=== PATIENT | male | born 1995 | race Caucasian/White ===

== ENCOUNTER 2018-05-11 08:03 | Emergency (ER) | payer OTHER ==
[2018-05-11] MEDS: ACETAMINOPHEN 500 MG TAB PO (08:21)
== END 2018-05-11 08:52 | disposition home or self-care (01) ==
LOC: FTE 08:03
DX: J06.9 Acute upper respiratory infection, unspecified (principal)
CPT/HCPCS: 99283; Z7610

== ENCOUNTER 2018-09-25 21:05 | Emergency (ER) | payer OTHER ==
[2018-09-25] MEDS: TETRACAINE 0.5% 4 ML OPH RIGHT EYE (22:43)
[2018-09-25] MEDS: FLUORESCEIN STRIP RIGHT EYE (22:43)
[2018-09-25] MEDS: OPHTHALMIC IRRIG SOLUTION 120 ML RIGHT EYE (23:50)
[2018-09-26 01:48] LABS: ALANINE AMINOTRANSFERASE 97 IU/L (13-69); ALBUMIN 4.7 g/dl (3.3-4.9); ALBUMIN/GLOBULIN RATIO 1.23; ALKALINE PHOSPHATASE 106 IU/L (42-121); ANION GAP 11 (5-13); ASPARTATE AMINO TRANSFERASE 54 IU/L (15-46); BILIRUBIN,INDIRECT 0.9 mg/dl (0-1.1); BILIRUBIN,TOTAL 0.9 mg/dl (0.2-1.3); BLOOD UREA NITROGEN 13 mg/dl (7-20); CALCIUM 9.6 mg/dl (8.4-10.2); CARBON DIOXIDE 27 mmol/L (21-31); CHLORIDE 106 mmol/L (97-110); CREATININE 0.89 mg/dl (0.61-1.24); Estimated GFR > 60 mL/min (>60); GLUCOSE 110 mg/dl (70-220); POTASSIUM 4.3 mmol/L (3.5-5.1); SODIUM 144 mmol/L (135-144); TOTAL PROTEIN 8.5 g/dl (6.1-8.1)
[2018-09-26] MEDS: POLYMYXIN/TRIMETHOPRIM 10 ML OPH BOTH EYES (03:18)
[2018-09-26] MEDS: DIPHTH/TET/ACEL PERTUSS (ADULT) 0.5 ML VIAL IM* (03:49)
== END 2018-09-26 09:42 | disposition short-term general hospital (02) ==
LOC: FTE 21:05 → E/R 09-26 09:42
DX: S00.11XA Contusion of right eyelid and periocular area, initial encounter (principal); W21.03XA Struck by baseball, initial encounter; Y92.9 Unspecified place or not applicable; Z23 Encounter for immunization
CPT/HCPCS: 70480; 76536; 80053; 90471; 90715; 99284-25